=== PATIENT | female | born 1975 | race Caucasian/White ===

== ENCOUNTER 2021-03-21 20:35 | Emergency (ER) | payer MEDICAID ==
--- NOTE | 2021-03-21 21:47 | EDM.PDOC ---
ED HPI GENERAL MEDICAL PROBLEM - General Chief Complaint: Laceration Stated Complaint: LT WRIST LACERATION Time Seen by Provider: 03/21/21 21:39 - History of Present Illness INITIAL COMMENTS - FREE TEXT/NARRATIVE: History of present illness: [] The patient cut her left hand. She has normal function of the left digits. She has no other injury. Review of systems: As per history of present illness and below otherwise all systems reviewed and negative. Past medical history: As per history of present illness and as reviewed below otherwise noncontributory. Surgical history: As per history of present illness and as reviewed below otherwise noncontributory. Social history: No reported history of drug or alcohol abuse. Family history: As per history of present illness and as reviewed below otherwise noncontributory. Physical exam: Constitutional - well developed, well-nourished and in no acute distress HEENT - normocephalic, no evidence of trauma - external nose and mouth normal - no mass in neck and no JVD - mucosae moist EYES - full EOM, PERRL, no icterus - no evidence of inflammation, injection, or drainage Respiratory - no respiratory distress, equal bilateral expansion Circulatory-color warmth capillary refill all intact in the distal digits of the left upper extremity Musculoskeletal no gross deformity of long bones or joints - no tenderness, swelling or edema Neurologic - Alert and oriented times four - CN II-XII grossly intact - motor sensory and coordination symmetrically normal motor sensory intact in the distal digits of the left upper extremity Psychiatric - appropriate mood and affect with normal thought content Hematologic - No petechiae or purpura - mucosa appropriate color and sclera not pale - normal nail bed color and refill Integument -3 and half centimeter laceration on the volar hypothenar area of the left hand distally near the end of the metacarpal length. No rash or evidence of trauma - normal turgor Diagnostics: [] Therapeutics: [] Impression: [] Plan: [] Definitive disposition and diagnosis as appropriate pending reevaluation and review of above. Right Hand Pain Score (Numeric/FACES): 2 - Related Data Allergies Allergy/AdvReac Type Severity Reaction Status Date / Time No Known Allergies Allergy Verified 03/21/21 21:05 Home Meds: Home Meds amLODIPine Besylate [Amlodipine Besylate] 10 mg PO DAILY 03/21/21 [History] hydroCHLOROthiazide [Hydrochlorothiazide] 25 mg PO DAILY 03/21/21 [History] Social & Family History - Recreational Drug Use Recreational Drug Use: No ED ROS GENERAL - Review of Systems Review Of Systems: Comprehensive ROS is negative, except as noted in HPI. ED EXAM, SKIN/RASH Exam: See Below Text/Narrative:: My physical exam is in the HPI ED SKIN PROCEDURES - Laceration/Wound Repair Left Hand Appearance: Subcutaneous Distal NVT: Neuro & Vascular Intact, No Tendon Injury Anesthetic Type: Local Local Anesthesia - Lidocaine (Xylocaine): 1% Plain Local Anesthetic Volume: Other (10 cc) Skin Prep: Providone-Iodine (Betadine), Saline Saline Irrigation (cc's): 500 Exploration/Debridement/Repair: Wound Explored, In a Bloodless Field Closed with: Sutures Lac/Wound length In cm: -35 Suture Size: 5-0 # of Sutures: 8 Suture Type: Nylon Progress/Comments: Tetanus was less than 5 years Course - Vital Signs Text/Narrative:: Patient states she has had a tetanus immunization in the less than 5 years Last Recorded V/S: Last Vital Signs Temp 37.1 C 03/21/21 20:59 Pulse 68 03/21/21 22:25 Resp 18 03/21/21 22:25 BP 195/105 H 03/21/21 22:38 Pulse Ox 98 03/21/21 22:25 - Orders/Labs/Meds Meds: Medications Discontinued Medications Generic Name Dose Route Start Last Admin Trade Name George PRN Reason Stop Dose Admin Amlodipine Besylate 10 mg 03/21/21 22:27 03/21/21 22:38 Amlodipine 5 Mg Tab PO 03/21/21 22:28 10 mg ONETIME ONE Administration Lidocaine HCl 20 ml 03/21/21 21:42 03/21/21 22:13 Lidocaine 1% 5 Ml Sdv INJECT 03/21/21 21:43 20 ml ONETIME ONE Administration Departure - Departure Time of Disposition: 22:51 Disposition: Home, Self-Care 01 Condition: Good Clinical Impression: Laceration of left hand - Discharge Information Instructions: Laceration Care, Adult Referrals: PCP,Not In Area [Primary Care Provider] - Forms: ED Department Discharge Additional Instructions: Return if numbness weakness discoloration of the finger are infection of the hand. Sutures out in 7 to 10 days. That can be accomplished here without coming back to the emergency department itself but he signed in at the same area. [facility] [address] [place] [address] [facility] [address] [place] [address] The following information is given to patients seen in the emergency department who are being discharged to home. This information is to outline your options for follow-up care. We provide all patients seen in our emergency department with a follow-up referral. The need for follow-up, as well as the timing and circumstances, are variable depending upon the specifics of your emergency department visit. If you don't have a primary care physician on staff, we will provide you with a referral. We always advise you to contact your personal physician following an emergency department visit to inform them of the circumstance of the visit and for follow-up with them and/or the need for any referrals to a consulting specialist. The emergency department will also refer you to a specialist when appropriate. This referral assures that you have the opportunity for follow-up care with a specialist. All of these measure are taken in an effort to provide you with optimal care, which includes your follow-up. Under all circumstances we always encourage you to contact your private physician who remains a resource for coordinating your care. When calling for follow-up care, please make the office aware that this follow-up is from your recent emergency room visit. If for any reason you are refused follow-up, please contact the [facility] Emergency Department at and asked to speak to the emergency department charge nurse. Sepsis Event Note (ED) - Evaluation Sepsis Screening Result: No Definite Risk - Focused Exam Vital Signs: Vital Signs Temp Pulse Resp BP BP Pulse Ox 03/21/21 22:38 195/105 H 03/21/21 22:25 68 18 195/101 H 98 03/21/21 20:59 37.1 C 91 14 221/126 H 96
[2021-03-21] MEDS ORDERED: amLODIPine 5 MG Tab PO ONE (22:27)
== END 2021-03-21 23:00 | disposition home or self-care (01) ==
LOC: MW.ED 20:35
DX: S61.412A Laceration without foreign body of left hand, initial encounter (principal); W26.8XXA Contact with other sharp object(s), not elsewhere classified, initial encounter
CPT/HCPCS: 12002; 99282; A9270; 99283

== ENCOUNTER 2024-12-04 07:18 | Day surgery (SDC) | payer BC ==
[~2024-12-04 07:18] MED LIST: Lactated Ringers 1,000 ML IV SCH; Sodium Chloride 0.9% 10 ML Syringe FLUSH PRN; Sodium Chloride 0.9% 2.5 ML Syringe FLUSH PRN; Sodium Chloride 0.9% 20 ML SDV IV PRN
[2024-12-04 07:47] LABS: HEMATOCRIT 44.5 % (37.0-47.0); MEAN CORPUSCULAR HEMOGLOBIN 28.6 pg (28.0-32.0); MEAN CORPUSCULAR HGB CONC 33.7 g/dL (32.0-36.0); MEAN CORPUSCULAR VOLUME 84.9 fL (83.0-99.0); MEAN PLATELET VOLUME 9.6 fL (9.4-12.3); PLATELET COUNT,PLT 342 K/uL (150-400); RED BLOOD CELL COUNT 5.24 M/uL (4.10-5.30); WHITE BLOOD CELL COUNT,WBC 14.59 K/uL (3.9-11.3)
[2024-12-04] MEDS ORDERED: propofoL 500 MG/50 ML 50 ML ONE (08:04)
[2024-12-04] MEDS ORDERED: Lidocaine 2% 5 ML SDV ONE (08:04)
[2024-12-04 08:32] LABS: A/G RATIO 0.8 (0.9-1.6); ALBUMIN 3.5 g/dL (3.4-5.0); BILIRUBIN TOTAL 0.5 mg/dL (0.2-1.0); CARBON DIOXIDE,CO2 23.2 mmol/L (21.0-32.0); CREATININE 0.9 mg/dL (0.6-1.0); EST CRCL DRUG DOSING (CG) 71.56 mL/min; POTASSIUM,K 3.8 mmol/L (3.5-5.1); PROTEIN TOTAL,TP 7.8 g/dL (6.4-8.2)
[2024-12-04] MEDS ORDERED: Propofol 200 MG/20 ML SDV ONE ×2 (08:52→09:05)
[2024-12-04] MEDS: fentaNYL 50 MCG/ML SDV IVPUSH ONE (09:50)
== END 2024-12-04 10:45 | disposition home or self-care (01) ==
LOC: MW.SDS 07:18
PROVIDERS: ATTEND Surgery
DX: Z12.11 Encounter for screening for malignant neoplasm of colon (principal); D12.2 Benign neoplasm of ascending colon; D12.3 Benign neoplasm of transverse colon; D12.5 Benign neoplasm of sigmoid colon; K57.30 Diverticulosis of large intestine without perforation or abscess without bleeding; J44.9 Chronic obstructive pulmonary disease, unspecified; I10 Essential (primary) hypertension; F17.210 Nicotine dependence, cigarettes, uncomplicated; Z79.899 Other long term (current) drug therapy; R19.5 Other fecal abnormalities
CPT/HCPCS: 36415; 45380; 45385; 80053; 85027; J2003; J2704; J3010; 00811